=== PATIENT | female | born 1940 | race Two or more races ===

== ENCOUNTER 2020-07-02 07:23 | Outpatient (CLI) | payer OTHER | END 2020-07-02 07:27 | disposition home or self-care (01) | LOC: LAB 07:23 | PROVIDERS: ATTEND Specialist | DX: Z20.828 Contact with and (suspected) exposure to other viral communicable diseases (principal); R05 Cough; Z03.818 Encounter for observation for suspected exposure to other biological agents ruled out; R50.9 Fever, unspecified ==